=== PATIENT | female | born 1950 | race Asian ===

== ENCOUNTER 2021-08-16 10:41 | Outpatient (CLI) | payer OTHER ==
[2021-08-16 19:51] LABS: SARS-CoV-2 PCR by NAA Not Detected (NotDetected)
== END 2021-08-16 10:42 | disposition home or self-care (01) ==
LOC: CSHLAB 10:41
PROVIDERS: ATTEND Internal Medicine Gastroenterology
DX: Z20.822 Contact with and (suspected) exposure to COVID-19 (principal); Z12.11 Encounter for screening for malignant neoplasm of colon
CPT/HCPCS: U0003; U0005